=== PATIENT | male | born 1950 | race Caucasian/White ===

== ENCOUNTER 2018-12-29 14:37 | Inpatient (IN) | payer MEDICARE ==
[~2018-12-29] VITALS: Ht 188 cm; Wt 141.1 kg
[2018-12-29] MEDS ORDERED: METHYLPREDNISOLONE SOD SUCC 125 MG/2 ML VIAL IV STA (15:08)
[2018-12-29] MEDS ORDERED: IPRATROPIUM BROMIDE (0.02%) 0.5MG/2.5ML NEB HHN STA (15:08)
[2018-12-29 15:23] LABS: HEMATOCRIT. 36.8 % (42.0-52.0); HEMOGLOBIN. 11.8 g/dL (14.0-18.0); MEAN CORPUSCULAR HEMOGLOBIN 29.3 pg (28.0-32.0); MEAN CORPUSCULAR VOLUME 91.5 fL (80.0-94.0); MEAN PLATELET VOLUME 8.5 fl (7.4-10.4); PLATELET 231 x1000/uL (130-400); RED BLOOD CELL COUNT 4.03 mill/uL (4.7-6.1); RED CELL DISTRIBUTION WIDTH 16.2 % (11.6-14.6)
[2018-12-29 15:24] LABS: CHLORIDE 105 mEq/L (98-107)
[2018-12-29] MEDS: ALBUTEROL (0.083%) 2.5MG/3ML NEB HHN SCH ×3 (15:30→16:20)
[2018-12-29] MEDS ORDERED: FUROSEMIDE 40MG/4ML VIAL IVP ONE (16:00)
[2018-12-29 16:57] LABS: PLATELET ESTIMATE NORMAL
[2018-12-29 17:13] LABS: BG BASE EXCESS -1.8 mmol/L (-2.0-2.0); BG CARBOXYHEMOGLOBIN 0.8 % (0.5-1.5); BG DEOXYHEMOGLOBIN 18.1 % (0.0-5.0); BG FRACTION INSPIRED OXYGEN 32; BG HCO3 ACT 25.9 mmol/L (22.0-26.0); BG METHEMOGLOBIN 0.2 % (0.0-1.5); BG OXYGEN SATURATION 81.7 % (92.0-98.5); BG OXYHEMOGLOBIN 80.9 % (94.0-97.0); BG PCO2 57.4 mmHg (35.0-45.0); BG PH 7.273 (7.350-7.450); BG PO2 51.9 mmHg (75.0-100.0); BG SAMPLE SITE RIGHT RADIAL; BG TOTAL HEMOGLOBIN 12.7 g/dL (12.0-18.0); BG VENT MODE NASAL CANNULA
[2018-12-29] MEDS ORDERED: LEVOFLOXACIN 750MG PREMIX 150 ML IV ONE (17:15)
[2018-12-29] MEDS ORDERED: ZOLPIDEM TARTRATE 5MG TABLET PO PRN (17:30)
[2018-12-29] MEDS ORDERED: CLONIDINE 0.1MG TABLET PO PRN (17:30)
[2018-12-29] MEDS ORDERED: LORAZEPAM 0.5MG TABLET PO PRN (17:30)
[2018-12-29] MEDS ORDERED: IPRATROPIUM/ALBUTEROL 0.5-3(2.5)MG/3ML NEB INH PRN (17:30)
[2018-12-29] MEDS ORDERED: DOCUSATE SODIUM 100MG CAPSULE PO PRN (17:30)
[2018-12-29] MEDS ORDERED: GUAIFENESIN 200MG/10ML SUGAR FREE UDC PO PRN (17:30)
[2018-12-29] MEDS ORDERED: NITROGLYCERIN 0.4MG TABLET SL SL PRN (17:30)
[2018-12-29] MEDS ORDERED: MAGNESIUM/ALUMINUM HYDROXIDE/SIMETHICONE 30ML UDC PO PRN (17:30)
[2018-12-29] MEDS ORDERED: TRAMADOL 50MG TABLET PO PRN (17:30)
[2018-12-29] MEDS ORDERED: DEXTROSE 50% WATER 50ML SYRINGE IV PRN (17:30)
[2018-12-29] MEDS ORDERED: ONDANSETRON HCL 4MG/2ML INJ IV PRN (17:30)
[2018-12-29 18:20] LABS: T4 FREE 1.1 ng/dL (0.76-1.46)
[2018-12-29 18:34] LABS: FOLIC ACID (FOLATE) SERUM >20 ng/mL ng/mL (>5.38)
[2018-12-29 18:45] LABS: VITAMIN B12 SERUM 233 pg/mL (211-911)
[2018-12-29] MEDS: FUROSEMIDE 40MG/4ML VIAL IVP SCH (21:18)
[2018-12-29] MEDS: INSULIN LISPRO 100 UNITS/ML SUBCUT SCH (21:18)
[2018-12-29] MEDS: FAMOTIDINE 20MG TABLET PO SCH (21:18)
[2018-12-29] MEDS: BLOOD SUGAR DIAGNOSTIC STRIP TEST SCH (21:19)
[2018-12-29] MEDS: DILTIAZEM HCL 60MG TABLET PO SCH (23:19)
[2018-12-29] MEDS: METHYLPREDNISOLONE SOD SUCC 125 MG/2 ML VIAL IV SCH (23:21)
[2018-12-29] MEDS: ASCORBIC ACID 500 MG TABLET PO SCH (23:21)
[2018-12-29] MEDS: ENOXAPARIN 40MG/0.4ML SYR SUBCUT SCH (23:23)
[2018-12-30] VITALS (12 sets, daily range): BP systolic 102–135; BP diastolic 52–81
[2018-12-30] MEDS: IPRATROPIUM/ALBUTEROL 0.5-3(2.5)MG/3ML NEB HHN SCH ×6 (00:37→20:10)
[2018-12-30 01:20] LABS: CREATINE KINASE MB FRACTION 2.9 ng/mL (0.5-3.6)
[2018-12-30] MEDS: GUAIFENESIN/DM 600MG/30MG ER TAB 12HR PO SCH ×2 (06:21→17:37)
[2018-12-30] MEDS: METHYLPREDNISOLONE SOD SUCC 125 MG/2 ML VIAL IV SCH ×2 (06:21→14:07)
[2018-12-30] MEDS: DILTIAZEM HCL 60MG TABLET PO SCH ×2 (06:23→12:50)
[2018-12-30 07:11] LABS: CREATINE KINASE MB FRACTION 3.3 ng/mL (0.5-3.6)
[2018-12-30] MEDS: BLOOD SUGAR DIAGNOSTIC STRIP TEST SCH ×4 (07:49→21:00)
[2018-12-30] MEDS: ZINC SULFATE 220 MG ( 50 ) CAPSULE PO SCH (08:54)
[2018-12-30] MEDS: ASCORBIC ACID 500 MG TABLET PO SCH ×2 (08:54→21:22)
[2018-12-30] MEDS: FUROSEMIDE 40MG/4ML VIAL IVP SCH (08:55)
[2018-12-30] MEDS: FAMOTIDINE 20MG TABLET PO SCH ×2 (08:55→21:22)
[2018-12-30] MEDS: ENOXAPARIN 40MG/0.4ML SYR SUBCUT SCH (08:56)
[2018-12-30] MEDS: INSULIN LISPRO 100 UNITS/ML SUBCUT SCH ×4 (08:57→23:34)
[2018-12-30] MEDS ORDERED: ASPIRIN 325MG EC TABLET PO SCH (09:00)
[2018-12-30 09:52] LABS: HEMOGLOBIN. 11.2 g/dL (14.0-18.0); MEAN CORPUSCULAR HEMOGLOBIN 29.4 pg (28.0-32.0); MEAN PLATELET VOLUME 8.9 fl (7.4-10.4); PLATELET 182 x1000/uL (130-400); RED BLOOD CELL COUNT 3.81 mill/uL (4.7-6.1); RED CELL DISTRIBUTION WIDTH 16.6 % (11.6-14.6)
[2018-12-30 10:35] LABS: PLATELET ESTIMATE NORMAL
[2018-12-30 13:13] LABS: CHLORIDE 102 mEq/L (98-107)
[2018-12-30] MEDS: NEBIVOLOL HCL 5 MG TABLET PO SCH ×2 (14:13→21:23)
[2018-12-30] MEDS: ENOXAPARIN 150MG/ML SYR SUBCUT SCH ×2 (14:14→21:24)
[2018-12-30 14:46] LABS: PROTHROMBIN TIME 9.9 sec (9.1-11.1)
[2018-12-30] MEDS: NITROGLYCERIN OINT 1GM/INCH UDPKT TD SCH ×3 (15:56→23:35)
[2018-12-30] MEDS ORDERED: METF-416 PO (16:46)
[2018-12-30] MEDS ORDERED: GABA600T PO (16:46)
[2018-12-30] MEDS ORDERED: PIOG15TA23 PO (16:46)
[2018-12-30] MEDS ORDERED: DULO60CA63 PO (16:46)
[2018-12-30] MEDS ORDERED: METO25TA6 PO (16:46)
[2018-12-30] MEDS ORDERED: ROSU40TA21 PO (16:46)
[2018-12-30] MEDS ORDERED: LOSA50TA20 PO (16:46)
[2018-12-30] MEDS ORDERED: CLOP75TA16 PO (16:46)
[2018-12-30] MEDS ORDERED: FURO-151 MT (16:46)
[2018-12-30] MEDS ORDERED: POTA10CA42 PO (16:46)
[2018-12-30] MEDS ORDERED: LEVOFLOXACIN 500MG PREMIX 100 ML IV SCH ×2 (17:30→20:00)
[2018-12-30] MEDS: PREDNISONE 20MG TABLET PO SCH (17:37)
[2018-12-30] MEDS: BUDESONIDE 0.5MG/2ML NEB HHN SCH (20:10)
[2018-12-31] VITALS (12 sets, daily range): BP systolic 91–140; BP diastolic 53–73
[2018-12-31] MEDS: IPRATROPIUM/ALBUTEROL 0.5-3(2.5)MG/3ML NEB HHN SCH ×6 (00:03→20:45)
[2018-12-31] MEDS: GUAIFENESIN/DM 600MG/30MG ER TAB 12HR PO SCH ×2 (04:38→17:33)
[2018-12-31] MEDS: NITROGLYCERIN OINT 1GM/INCH UDPKT TD SCH ×6 (04:39→23:18)
[2018-12-31 07:23] LABS: HEMATOCRIT. 35.6 % (42.0-52.0); HEMOGLOBIN. 11.6 g/dL (14.0-18.0); MEAN CORPUSCULAR HEMOGLOBIN 29.6 pg (28.0-32.0); MEAN CORPUSCULAR VOLUME 90.8 fL (80.0-94.0); PHOSPHORUS 4.2 mg/dL (2.5-4.9); PLATELET 197 x1000/uL (130-400); RED BLOOD CELL COUNT 3.92 mill/uL (4.7-6.1); RED CELL DISTRIBUTION WIDTH 15.9 % (11.6-14.6)
[2018-12-31] MEDS: BLOOD SUGAR DIAGNOSTIC STRIP TEST SCH ×4 (08:09→20:57)
[2018-12-31 08:33] LABS: BG BASE EXCESS 0.7 mmol/L (-2.0-2.0); BG CARBOXYHEMOGLOBIN 0.3 % (0.5-1.5); BG DEOXYHEMOGLOBIN 13.4 % (0.0-5.0); BG FRACTION INSPIRED OXYGEN 21; BG HCO3 ACT 27.3 mmol/L (22.0-26.0); BG METHEMOGLOBIN 0.3 % (0.0-1.5); BG OXYGEN SATURATION 86.5 % (92.0-98.5); BG PCO2 52.4 mmHg (35.0-45.0); BG PH 7.335 (7.350-7.450); BG SAMPLE SITE RIGHT BRACHIAL; BG TOTAL HEMOGLOBIN 12.2 g/dL (12.0-18.0); BG VENT MODE ROOM AIR
[2018-12-31] MEDS: ASCORBIC ACID 500 MG TABLET PO SCH ×2 (08:42→20:57)
[2018-12-31] MEDS: PREDNISONE 20MG TABLET PO SCH ×2 (08:43→17:34)
[2018-12-31] MEDS: NEBIVOLOL HCL 5 MG TABLET PO SCH ×2 (08:43→20:57)
[2018-12-31] MEDS: ASPIRIN 81MG EC TABLET PO SCH (08:43)
[2018-12-31] MEDS: FAMOTIDINE 20MG TABLET PO SCH (08:43)
[2018-12-31] MEDS: ZINC SULFATE 220 MG ( 50 ) CAPSULE PO SCH (08:43)
[2018-12-31] MEDS: INSULIN LISPRO 100 UNITS/ML SUBCUT SCH ×4 (08:44→23:17)
[2018-12-31] MEDS: BUDESONIDE 0.5MG/2ML NEB HHN SCH ×2 (08:48→20:45)
[2018-12-31] MEDS: ENOXAPARIN 150MG/ML SYR SUBCUT SCH ×2 (10:00→20:58)
[2018-12-31 14:59] LABS: CLARITY URINE CLOUDY (CLEAR); KETONES URINE NEGATIVE (NEGATIVE); LEUKOCYTE ESTERASE URINE 1+ (NEGATIVE); NITRITE URINE NEGATIVE (NEGATIVE); OCCULT BLOOD URINE 3+ (NEGATIVE); PH URINE 5.5 (4.5-8.0); PROTEIN URINE 2+ (NEGATIVE); SPECIFIC GRAVITY URINE 1.018 (1.005-1.030); UROBILINOGEN URINE 0.2 E.U./dL (0.2-1.0)
[2018-12-31 15:01] LABS: COLOR URINE BLOODY (YELLOW)
[2019-01-01] VITALS (12 sets, daily range): BP systolic 113–167; BP diastolic 44–85
[2019-01-01] MEDS: IPRATROPIUM/ALBUTEROL 0.5-3(2.5)MG/3ML NEB HHN SCH ×6 (00:37→19:59)
[2019-01-01] MEDS: NITROGLYCERIN OINT 1GM/INCH UDPKT TD SCH ×5 (04:33→21:11)
[2019-01-01] MEDS: GUAIFENESIN/DM 600MG/30MG ER TAB 12HR PO SCH ×2 (04:34→16:39)
[2019-01-01] MEDS: BLOOD SUGAR DIAGNOSTIC STRIP TEST SCH ×4 (07:42→21:13)
[2019-01-01 07:47] LABS: PHOSPHORUS 3.5 mg/dL (2.5-4.9)
[2019-01-01 08:02] LABS: HEMATOCRIT. 34.4 % (42.0-52.0); HEMOGLOBIN. 11.1 g/dL (14.0-18.0); MEAN CORPUSCULAR HEMOGLOBIN 29.5 pg (28.0-32.0); MEAN CORPUSCULAR VOLUME 91.1 fL (80.0-94.0); PLATELET 230 x1000/uL (130-400); RED BLOOD CELL COUNT 3.77 mill/uL (4.7-6.1)
[2019-01-01] MEDS: ENOXAPARIN 150MG/ML SYR SUBCUT SCH ×2 (08:46→21:13)
[2019-01-01 08:47] LABS: BG BASE EXCESS 0.3 mmol/L (-2.0-2.0); BG CARBOXYHEMOGLOBIN 0.3 % (0.5-1.5); BG DEOXYHEMOGLOBIN 7.5 % (0.0-5.0); BG FRACTION INSPIRED OXYGEN 60; BG HCO3 ACT 25.9 mmol/L (22.0-26.0); BG METHEMOGLOBIN 0.3 % (0.0-1.5); BG OXYGEN SATURATION 92.5 % (92.0-98.5); BG OXYHEMOGLOBIN 91.9 % (94.0-97.0); BG PCO2 46.1 mmHg (35.0-45.0); BG PH 7.368 (7.350-7.450); BG SAMPLE SITE RIGHT RADIAL; BG TOTAL HEMOGLOBIN 12.1 g/dL (12.0-18.0); BG VENT MODE VAPOTHERM
[2019-01-01] MEDS: PREDNISONE 20MG TABLET PO SCH ×2 (08:47→16:40)
[2019-01-01] MEDS: NEBIVOLOL HCL 5 MG TABLET PO SCH ×2 (08:47→21:12)
[2019-01-01] MEDS: ZINC SULFATE 220 MG ( 50 ) CAPSULE PO SCH (08:47)
[2019-01-01] MEDS: ASPIRIN 81MG EC TABLET PO SCH (08:48)
[2019-01-01] MEDS: ASCORBIC ACID 500 MG TABLET PO SCH ×2 (08:48→21:12)
[2019-01-01] MEDS: FAMOTIDINE 20MG TABLET PO SCH (08:48)
[2019-01-01] MEDS: INSULIN LISPRO 100 UNITS/ML SUBCUT SCH ×4 (08:50→22:13)
[2019-01-01] MEDS: BUDESONIDE 0.5MG/2ML NEB HHN SCH ×2 (08:53→19:58)
[2019-01-01] MEDS: ACETAMINOPHEN 325MG TABLET PO PRN ×2 (09:38→14:54)
[2019-01-01 10:50] LABS: PLATELET ESTIMATE NORMAL
[2019-01-01] MEDS ORDERED: LEVOFLOXACIN 250MG TABLET PO SCH (11:00)
[2019-01-01] MEDS ORDERED: LIDOCAINE HCL/PF 1% 2ML VIAL ONE (15:46)
[2019-01-01] MEDS ORDERED: LEVOFLOXACIN 750MG PREMIX 150 ML IV SCH (17:00)
[2019-01-02] VITALS (44 sets, daily range): BP systolic 52–146; BP diastolic 26–95
[2019-01-02] MEDS: IPRATROPIUM/ALBUTEROL 0.5-3(2.5)MG/3ML NEB HHN SCH ×4 (00:13→20:10)
[2019-01-02] MEDS: NITROGLYCERIN OINT 1GM/INCH UDPKT TD SCH ×3 (01:26→09:05)
[2019-01-02 06:42] LABS: HEMATOCRIT. 26.9 % (42.0-52.0); HEMOGLOBIN. 8.4 g/dL (14.0-18.0); MEAN CORPUSCULAR HEMOGLOBIN 28.8 pg (28.0-32.0); MEAN CORPUSCULAR VOLUME 91.6 fL (80.0-94.0); MEAN PLATELET VOLUME 9.1 fl (7.4-10.4); PLATELET 357 x1000/uL (130-400); RED BLOOD CELL COUNT 2.93 mill/uL (4.7-6.1); RED CELL DISTRIBUTION WIDTH 16.3 % (11.6-14.6)
[2019-01-02 06:51] LABS: CHLORIDE 105 mEq/L (98-107)
[2019-01-02 07:03] LABS: PLATELET ESTIMATE NORMAL
[2019-01-02] MEDS: ACETAMINOPHEN 325MG TABLET PO PRN (07:48)
[2019-01-02] MEDS: BLOOD SUGAR DIAGNOSTIC STRIP TEST SCH ×4 (07:53→21:57)
[2019-01-02] MEDS: BUDESONIDE 0.5MG/2ML NEB HHN SCH (08:15)
[2019-01-02] MEDS: INSULIN LISPRO 100 UNITS/ML SUBCUT SCH ×6 (09:05→22:08)
[2019-01-02] MEDS: NEBIVOLOL HCL 5 MG TABLET PO SCH (09:44)
[2019-01-02] MEDS: FAMOTIDINE 20MG TABLET PO SCH (09:44)
[2019-01-02] MEDS: ASPIRIN 81MG EC TABLET PO SCH (09:45)
[2019-01-02] MEDS: PREDNISONE 20MG TABLET PO SCH ×2 (09:45→17:00)
[2019-01-02] MEDS: ASCORBIC ACID 500 MG TABLET PO SCH (09:45)
[2019-01-02] MEDS: ZINC SULFATE 220 MG ( 50 ) CAPSULE PO SCH (09:45)
[2019-01-02] MEDS: ENOXAPARIN 150MG/ML SYR SUBCUT SCH (09:46)
[2019-01-02 10:30] LABS: PLATELET ESTIMATE NORMAL
[2019-01-02] MEDS ORDERED: SODIUM CHLORIDE 0.45% 250 ML IV SCH (11:15)
[2019-01-02] MEDS ORDERED: IRON SUCROSE COMPLEX 100 MG/5 ML ML IV SCH (12:00)
[2019-01-02] MEDS ORDERED: SODIUM CHLORIDE 0.9% 250 ML IV SCH (13:14)
[2019-01-02 13:23] LABS: HEMATOCRIT. 24.7 % (42.0-52.0); HEMOGLOBIN. 7.8 g/dL (14.0-18.0); MEAN CORPUSCULAR HEMOGLOBIN 29.2 pg (28.0-32.0); MEAN CORPUSCULAR VOLUME 92.2 fL (80.0-94.0); MEAN PLATELET VOLUME 8.9 fl (7.4-10.4); PLATELET 356 x1000/uL (130-400); RED BLOOD CELL COUNT 2.68 mill/uL (4.7-6.1); RED CELL DISTRIBUTION WIDTH 16.1 % (11.6-14.6)
[2019-01-02] MEDS ORDERED: DOPAMINE 400MG/250ML PREMIX 250 ML IV ONE (13:47)
[2019-01-02 13:56] LABS: NUCLEATED RED BLOOD CELLS 1 /100 WBC; PLATELET ESTIMATE NORMAL
[2019-01-02] MEDS ORDERED: SODIUM CHLORIDE 0.9% 1,000 ML IV SCH ×2 (14:00→22:30)
[2019-01-02] MEDS: SODIUM CHLORIDE 0.9% 250 ML IV NR ×2 (15:21→15:31)
[2019-01-02] MEDS: DOPAMINE 400MG/250ML PREMIX 250 ML IV PRN ×2 (15:22→22:29)
[2019-01-02] MEDS: PHENYLEPHRINE 40 MG in DEXT 5% WATER 246 ML IV PRN ×2 (15:25→21:57)
[2019-01-02 15:40] LABS: BG BASE EXCESS -9.7 mmol/L (-2.0-2.0); BG CARBOXYHEMOGLOBIN 0.3 % (0.5-1.5); BG DEOXYHEMOGLOBIN 1.9 % (0.0-5.0); BG HCO3 ACT 18.5 mmol/L (22.0-26.0); BG METHEMOGLOBIN 0.3 % (0.0-1.5); BG OXYGEN SATURATION 98.1 % (92.0-98.5); BG OXYHEMOGLOBIN 97.5 % (94.0-97.0); BG PCO2 52.6 mmHg (35.0-45.0); BG PH 7.165 (7.350-7.450); BG PO2 161.6 mmHg (75.0-100.0); BG SAMPLE SITE RIGHT RADIAL; BG TOTAL HEMOGLOBIN 9.2 g/dL (12.0-18.0); BG VENT MODE MASK - NRB
[2019-01-02 17:18] LABS: BG BASE EXCESS -7.1 mmol/L (-2.0-2.0); BG CARBOXYHEMOGLOBIN 0.3 % (0.5-1.5); BG HCO3 ACT 20.4 mmol/L (22.0-26.0); BG METHEMOGLOBIN 0.3 % (0.0-1.5); BG OXYHEMOGLOBIN 98.4 % (94.0-97.0); BG PH 7.228 (7.350-7.450); BG PO2 257.4 mmHg (75.0-100.0); BG SAMPLE SITE RIGHT RADIAL; BG TOTAL HEMOGLOBIN 10.3 g/dL (12.0-18.0); BG VENT MODE MASK - NRB
[2019-01-02] MEDS ORDERED: METHYLPREDNISOLONE SOD SUCC 40 MG/ML VIAL IV ONE (17:30)
[2019-01-02] MEDS ORDERED: BUDESONIDE 0.5MG/2ML NEB HHN SCH (17:30)
[2019-01-02] MEDS: GUAIFENESIN/DM 600MG/30MG ER TAB 12HR PO SCH (17:30)
[2019-01-02 20:19] LABS: HEMATOCRIT 34.1 % (42.0-52.0); HEMOGLOBIN 10.7 g/dL (14.0-18.0)
[2019-01-03] VITALS (83 sets, daily range): BP systolic 14–195; BP diastolic 10–169
[2019-01-03] MEDS ORDERED: NOREPINEPHRINE 32 MG in DEXT 5% WATER 468 ML IV PRN (01:00)
[2019-01-03] MEDS ORDERED: DOPAMINE 800MG PREMIX (DOUBLE) 250 ML IV ONE (01:32)
[2019-01-03] MEDS ORDERED: SODIUM BICARBONATE 8.4% 1 MEQ/ML 50ML SYR IV SCH ×5 (01:45→05:00)
[2019-01-03] MEDS ORDERED: PHENYLEPHRINE 80 MG in DEXT 5% WATER 492 ML IV PRN (02:30)
[2019-01-03] MEDS ORDERED: PROPOFOL 10MG/ML 100ML 100 ML IV PRN (02:45)
[2019-01-03 03:15] LABS: HEMATOCRIT. 25.9 % (42.0-52.0); HEMOGLOBIN. 8.1 g/dL (14.0-18.0); MEAN CORPUSCULAR HEMOGLOBIN 29.1 pg (28.0-32.0); MEAN CORPUSCULAR VOLUME 93.3 fL (80.0-94.0); MEAN PLATELET VOLUME 9.4 fl (7.4-10.4); RED BLOOD CELL COUNT 2.77 mill/uL (4.7-6.1); RED CELL DISTRIBUTION WIDTH 17.2 % (11.6-14.6)
[2019-01-03 03:21] LABS: CHLORIDE 102 mEq/L (98-107)
[2019-01-03] MEDS: DOPAMINE 800MG PREMIX (DOUBLE) 250 ML IV PRN ×3 (03:33→08:21)
[2019-01-03 03:35] LABS: BG BILEVEL POS AIRWAY PRESSURE 18/6; BG CARBOXYHEMOGLOBIN 0.3 % (0.5-1.5); BG DEOXYHEMOGLOBIN 1.6 % (0.0-5.0); BG FRACTION INSPIRED OXYGEN 100; BG HCO3 ACT 11.8 mmol/L (22.0-26.0); BG METHEMOGLOBIN 0.6 % (0.0-1.5); BG OXYGEN SATURATION 98.4 % (92.0-98.5); BG OXYHEMOGLOBIN 97.5 % (94.0-97.0); BG PCO2 51.3 mmHg (35.0-45.0); BG PO2 213.9 mmHg (75.0-100.0); BG SAMPLE SITE LEFT RADIAL; BG TOTAL HEMOGLOBIN 9.5 g/dL (12.0-18.0); BG VENT MODE MASK - BIPAP; BG VENT RATE 22 set
[2019-01-03 03:36] LABS: BG BASE EXCESS -10.8 mmol/L (-2.0-2.0); BG CARBOXYHEMOGLOBIN 0.3 % (0.5-1.5); BG DEOXYHEMOGLOBIN 18.8 % (0.0-5.0); BG FRACTION INSPIRED OXYGEN 100; BG HCO3 ACT 19.6 mmol/L (22.0-26.0); BG METHEMOGLOBIN 0.5 % (0.0-1.5); BG OXYHEMOGLOBIN 80.4 % (94.0-97.0); BG PCO2 75.5 mmHg (35.0-45.0); BG PH 7.033 (7.350-7.450); BG PO2 63.1 mmHg (75.0-100.0); BG SAMPLE SITE LEFT RADIAL; BG TIDAL VOLUME(mL) 500 mL; BG VENT MODE VENT - A/C; BG VENT RATE 18 set
[2019-01-03 03:53] LABS: PHOSPHORUS 12.4 mg/dL (2.5-4.9)
[2019-01-03] MEDS ORDERED: DEXTROSE 50% WATER 50ML SYRINGE IV SCH ×2 (04:00→10:00)
[2019-01-03] MEDS ORDERED: INSULIN REGULAR (HUMULIN R) 300UNITS/3ML IV SCH ×2 (04:00→10:00)
[2019-01-03] MEDS: IPRATROPIUM/ALBUTEROL 0.5-3(2.5)MG/3ML NEB HHN SCH ×2 (04:14→07:21)
[2019-01-03] MEDS ORDERED: CALCIUM CHLORIDE 1GM/10ML SYR IV SCH (04:15)
[2019-01-03] MEDS ORDERED: SODIUM BICARBONATE 8.4% 1 MEQ/ML 50ML SYR IV ONE ×4 (04:15→10:30)
[2019-01-03] MEDS ORDERED: FUROSEMIDE 100MG/10ML VIAL IVP SCH (04:30)
[2019-01-03] MEDS: VASOPRESSIN 10 UNIT in SODIUM CHLORIDE 0.9% 99.5 ML IV PRN ×2 (04:31→07:35)
[2019-01-03] MEDS: PHENYLEPHRINE 80 MG in DEXT 5% WATER 492 ML IV PRN ×2 (04:33→09:38)
[2019-01-03] MEDS ORDERED: SODIUM POLYSTYRENE SULFONATE 15 G/60 ML BOT PO SCH (05:00)
[2019-01-03] MEDS ORDERED: SODIUM BICARBONATE 150 MEQ in DEXTROSE 5% WATER 1,000 ML IV SCH (05:00)
[2019-01-03] MEDS ORDERED: ALBUMIN HUMAN 25GM/100ML (25%) IV SCH (05:00)
[2019-01-03] MEDS: GUAIFENESIN/DM 600MG/30MG ER TAB 12HR PO SCH (05:04)
[2019-01-03 05:16] LABS: BG BASE EXCESS -8.9 mmol/L (-2.0-2.0); BG CARBOXYHEMOGLOBIN 0.3 % (0.5-1.5); BG DEOXYHEMOGLOBIN 10.9 % (0.0-5.0); BG FRACTION INSPIRED OXYGEN 100; BG HCO3 ACT 20.4 mmol/L (22.0-26.0); BG METHEMOGLOBIN 0.7 % (0.0-1.5); BG OXYHEMOGLOBIN 88.1 % (94.0-97.0); BG PCO2 67.7 mmHg (35.0-45.0); BG PH 7.097 (7.350-7.450); BG PO2 74.7 mmHg (75.0-100.0); BG SAMPLE SITE LEFT RADIAL; BG TIDAL VOLUME(mL) 600 mL; BG TOTAL HEMOGLOBIN 7.3 g/dL (12.0-18.0); BG VENT MODE VENT - A/C; BG VENT RATE 24 set
[2019-01-03] MEDS: BUDESONIDE 0.5MG/2ML NEB HHN SCH (07:21)
[2019-01-03] MEDS ORDERED: LIDOCAINE HCL 1% 20ML VIAL (Pyxis) INJ ONE (07:35)
[2019-01-03] MEDS ORDERED: SODIUM BICARBONATE 4% (2.4MEQ) 5ML VIAL IV ONE (07:36)
[2019-01-03] MEDS ORDERED: NITROGLYCERIN OINT 1GM/INCH UDPKT TD SCH (08:00)
[2019-01-03] MEDS: BLOOD SUGAR DIAGNOSTIC STRIP TEST SCH (08:22)
[2019-01-03] MEDS: FAMOTIDINE 20MG TABLET PO SCH (08:22)
[2019-01-03] MEDS: ZINC SULFATE 220 MG ( 50 ) CAPSULE PO SCH (08:22)
[2019-01-03] MEDS: PREDNISONE 20MG TABLET PO SCH (08:23)
[2019-01-03] MEDS: INSULIN LISPRO 100 UNITS/ML SUBCUT SCH (08:32)
[2019-01-03 08:50] LABS: BG BASE EXCESS -8.5 mmol/L (-2.0-2.0); BG CARBOXYHEMOGLOBIN 0.3 % (0.5-1.5); BG DEOXYHEMOGLOBIN 17.8 % (0.0-5.0); BG FRACTION INSPIRED OXYGEN 100; BG HCO3 ACT 20.3 mmol/L (22.0-26.0); BG METHEMOGLOBIN 0.6 % (0.0-1.5); BG OXYHEMOGLOBIN 81.3 % (94.0-97.0); BG PCO2 64.5 mmHg (35.0-45.0); BG PH 7.115 (7.350-7.450); BG PO2 60.7 mmHg (75.0-100.0); BG SAMPLE SITE LEFT BRACHIAL; BG TIDAL VOLUME(mL) 600 mL; BG TOTAL HEMOGLOBIN 6.5 g/dL (12.0-18.0); BG VENT MODE VENT - A/C; BG VENT RATE 30 set
[2019-01-03 09:43] LABS: HEMATOCRIT 17.4 % (42.0-52.0); HEMOGLOBIN 5.3 g/dL (14.0-18.0)
[2019-01-03] MEDS ORDERED: INSULIN REGULAR (HUMULIN R) UD 100 UNITS/ML SYR IV SCH (10:00)
[2019-01-03 10:02] LABS: BG BASE EXCESS -11.1 mmol/L (-2.0-2.0); BG CARBOXYHEMOGLOBIN 0.3 % (0.5-1.5); BG HCO3 ACT 18.4 mmol/L (22.0-26.0); BG METHEMOGLOBIN 0.9 % (0.0-1.5); BG OXYGEN SATURATION 66.6 % (92.0-98.5); BG OXYHEMOGLOBIN 65.8 % (94.0-97.0); BG PCO2 68.9 mmHg (35.0-45.0); BG PH 7.044 (7.350-7.450); BG PO2 47.8 mmHg (75.0-100.0); BG SAMPLE SITE A-LINE; BG TIDAL VOLUME(mL) 600 mL; BG TOTAL HEMOGLOBIN 5.8 g/dL (12.0-18.0); BG VENT MODE VENT - A/C; BG VENT RATE 30 set
[2019-01-03 10:11] LABS: NUCLEATED RED BLOOD CELLS 3 /100 WBC; PLATELET ESTIMATE NORMAL
[2019-01-03 10:15] LABS: PLATELET 345 x1000/uL (130-400)
[2019-01-03] MEDS ORDERED: ATROPINE SULFATE 1MG/10ML SYR IV ONE (10:30)
[2019-01-03] MEDS ORDERED: PIPERACILLIN/TAZ 2.25G PREMIX 50 ML IV SCH (11:00)
[2019-01-03] MEDS ORDERED: SUCCINYLCHOLINE CHLORIDE 200MG/10ML IV ONE (13:48)
[2019-01-03] MEDS ORDERED: ETOMIDATE 2MG/ML 10ML VIAL IV ONE (13:48)
== END 2019-01-03 10:49 | disposition expired | DRG 871 ==
LOC: ER 14:37 → EDBEDREQ 15:52 → EDBEDREQSVC 16:57 → 5EST 17:11 → EDBEDREQ 17:15 → SUPCPDRO 17:16 → ENRESERV 20:47 → 5EST 12-30 00:19 → CVICU 01-02 12:30
PROVIDERS: ADMIT Internal Medicine; ATTEND Internal Medicine
PROC: 5A09357 Assistance with Respiratory Ventilation, Less than 24 Consecutive Hours, Continuous Positive Airway Pressure (ICD-10-PCS; 2018-12-29)
PROC: 5A09357 Assistance with Respiratory Ventilation, Less than 24 Consecutive Hours, Continuous Positive Airway Pressure (ICD-10-PCS; 2018-12-30)
PROC: 5A09357 Assistance with Respiratory Ventilation, Less than 24 Consecutive Hours, Continuous Positive Airway Pressure (ICD-10-PCS; 2018-12-31)
PROC: 5A09357 Assistance with Respiratory Ventilation, Less than 24 Consecutive Hours, Continuous Positive Airway Pressure (ICD-10-PCS; 2019-01-01)
PROC: 02HV33Z Insertion of Infusion Device into Superior Vena Cava, Percutaneous Approach (ICD-10-PCS; 2019-01-02)
PROC: B548ZZA Ultrasonography of Superior Vena Cava, Guidance (ICD-10-PCS; 2019-01-02)
PROC: 30233N1 Transfusion of Nonautologous Red Blood Cells into Peripheral Vein, Percutaneous Approach (ICD-10-PCS; 2019-01-02)
PROC: 5A09357 Assistance with Respiratory Ventilation, Less than 24 Consecutive Hours, Continuous Positive Airway Pressure (ICD-10-PCS; 2019-01-02)
PROC: 5A1935Z Respiratory Ventilation, Less than 24 Consecutive Hours (ICD-10-PCS; principal; 2019-01-03)
PROC: 0BH17EZ Insertion of Endotracheal Airway into Trachea, Via Natural or Artificial Opening (ICD-10-PCS; 2019-01-03)
PROC: 02HV33Z Insertion of Infusion Device into Superior Vena Cava, Percutaneous Approach (ICD-10-PCS; 2019-01-03)
PROC: B548ZZA Ultrasonography of Superior Vena Cava, Guidance (ICD-10-PCS; 2019-01-03)
PROC: 5A1D70Z Performance of Urinary Filtration, Intermittent, Less than 6 Hours Per Day (ICD-10-PCS; 2019-01-03)
DX: A41.9 Sepsis, unspecified organism (principal); J96.21 Acute and chronic respiratory failure with hypoxia; I21.4 Non-ST elevation (NSTEMI) myocardial infarction; I50.43 Acute on chronic combined systolic (congestive) and diastolic (congestive) heart failure; K72.00 Acute and subacute hepatic failure without coma; N17.0 Acute kidney failure with tubular necrosis; J18.1 Lobar pneumonia, unspecified organism; R65.21 Severe sepsis with septic shock; J96.22 Acute and chronic respiratory failure with hypercapnia; J44.1 Chronic obstructive pulmonary disease with (acute) exacerbation; E44.0 Moderate protein-calorie malnutrition; R57.9 Shock, unspecified; D68.59 Other primary thrombophilia; E87.2 Acidosis; G93.40 Encephalopathy, unspecified; I13.0 Hypertensive heart and chronic kidney disease with heart failure and stage 1 through stage 4 chronic kidney disease, or unspecified chronic kidney disease; J44.0 Chronic obstructive pulmonary disease with (acute) lower respiratory infection; Z66 Do not resuscitate; E83.51 Hypocalcemia; E78.00 Pure hypercholesterolemia, unspecified; N18.9 Chronic kidney disease, unspecified; D50.9 Iron deficiency anemia, unspecified; D63.8 Anemia in other chronic diseases classified elsewhere; E11.22 Type 2 diabetes mellitus with diabetic chronic kidney disease; E11.51 Type 2 diabetes mellitus with diabetic peripheral angiopathy without gangrene; E87.5 Hyperkalemia; Z96.643 Presence of artificial hip joint, bilateral; Z96.651 Presence of right artificial knee joint; F17.210 Nicotine dependence, cigarettes, uncomplicated; G47.33 Obstructive sleep apnea (adult) (pediatric); I25.10 Atherosclerotic heart disease of native coronary artery without angina pectoris; I48.0 Paroxysmal atrial fibrillation; M48.00 Spinal stenosis, site unspecified; E66.9 Obesity, unspecified; Z79.4 Long term (current) use of insulin; Z82.49 Family history of ischemic heart disease and other diseases of the circulatory system; Z83.3 Family history of diabetes mellitus; Z95.1 Presence of aortocoronary bypass graft; Z99.81 Dependence on supplemental oxygen; Z79.84 Long term (current) use of oral hypoglycemic drugs; Z79.899 Other long term (current) drug therapy; Z68.39 Body mass index [BMI] 39.0-39.9, adult
CPT/HCPCS: 36415; 36569; 36600; 71045; 71250; 76700; 76770; 76937; 78582; 80048; 80061; 82375; 82550; 82553; 82607; 82746; 82805; 82962; 83036; 83540; 83550; 83735; 83880; 84100; 84132; 84439; 84443; 84484; 85014; 85018; 85379; 86850; 86900; 86920; 93005; 93306; 93923; 93970; 94640; 94660; 96374; 99285; A9558; C1725; C1726; C1752; J0330; J1265; J1642; J1650; J1815; J1940; J1956; J2370; J2405; J2543; J2704; J2920; J2930; J3490; J7050; J7060; J7070; J7512; J7611; J7620; J7626; P9016; P9047; A4315